=== PATIENT | female | born 1955 | race African-American/Black ===

== ENCOUNTER 2016-11-12 12:33 | Inpatient (IN) | payer MEDICARE, OTHER ==
--- NOTE | ~2016-11-12 | CN ---
Consultation Report [facility] [address] [place]. [address] NAME: MARTINA SCOTT : 51 STATUS : ADM IN PAT#: [id number] AGE: 61 ADM/REG DATE : 11/12/16 MR#: [id number] REPORT SERV DATE: 11/13/16 DICTATED BY: KRISHNA CONTRERAS DATE: 11/13/16 REPORT STATUS : Draft TRANSCRIBED BY: MODL DATE: 11/13/16 DATE OF CONSULTATION: 11/13/2016 CHIEF COMPLAINT: Shortness of breath and lower extremity edema in a patient with known severe COPD as well as severe pulmonary hypertension. HISTORY OF PRESENT ILLNESS: Ms. Martina Scott is a morbidly obese 61-year-old female with a past medical history significant for severe COPD with oxygen dependence at 46 L, severe pulmonary hypertension, obstructive sleep apnea without CPAP compliance, and ongoing tobacco abuse, who presents to [facility]'s Emergency Room with complaints of worsening shortness of breath and lower extremity edema of one to two weeks' duration. It should be noted that Ms. Scott was hospitalized as recently as June when she was seen by our Critical Care team. At the end of this hospitalization, she elected to pursue hospice care. Ms. Scott has been seen by multiple members of our pulmonary team in both the inpatient and outpatient setting. She is on chronic oxygen at 4-5 liters. She is on a home pulmonary regimen of DuoNeb of which she is compliant. Ms. Scott continues to smoke approximately half a pack of cigarettes per day. She has smoked at least one pack a day for the last 30- 40 years. She confirms multiple symptoms of obstructive sleep apnea. She has never had formal outpatient polysomnography as far she knows. She has refused CPAP therapy in the past. She describes her exercise tolerance as being poor, being only able to ambulate around her house a short distance before experiencing some degree of shortness of breath. Again, Ms. Scott was hospitalized in June of this year when she was treated for symptoms related to acute on chronic hypoxemic-hypercapnic respiratory failure as well as severe pulmonary hypertension. She was eventually discharged with hospice care and has largely done well in the 6-month interval. More recently, she began to experience increasing shortness of breath as well as bilateral lower extremity edema and as such presented to [facility]'s Emergency Room. Upon arrival, she was found to be afebrile. She had an oxygen saturation of 88% on 5 L. Initial blood work revealed a white blood cell count of 5400. Her BNP was elevated at 546.3. Her creatinine was 1.22. She did undergo a CT of the abdomen and pelvis for unclear reasons. That being said, she did have some trace ascites as well as a small right pleural effusion noted. The patient received diuretics as well as breathing treatments and IV steroids. Blood gas was obtained, which revealed a pH of 7.32, PaCO2 of 77, a PaO2 of 64, and a bicarb of 38.8. For the aforementioned reasons, she has been referred to the Pulmonary Service for further assessment. Currently, Ms. Scott' main pulmonary complaint is wheezing. She does have some shortness of breath. This is worse on exertion and relieved by rest. She denies any productive cough. She denies any recent pneumonias or upper respiratory infections. That being said, it looks like she has recently been prescribed a course of amoxicillin. She is appropriate, but slightly lethargic. Her son at bedside describes her as being not as "sharp as usual." The patient currently denies any murmurs, angina, or palpitations. She has had some Consultation Report [address] [address] NAME: MARTINA SCOTT : 51 STATUS : ADM IN [facility]#: [id number] AGE: 61 ADM/REG DATE : 11/12/16 MR#: [id number] REPORT SERV DATE: 11/13/16 DICTATED BY: KRISHNA CONTRERAS DATE: 11/13/16 REPORT STATUS : Draft TRANSCRIBED BY: NEVAEH DATE: 11/13/16 worsening lower extremity edema as of late. In regard to constitutional symptoms, she currently denies fever, chills, nausea, vomiting, chest pain, or abdominal pain. PAST MEDICAL HISTORY: 1. Severe COPD. 2. Chronic hypoxemic respiratory failure. 3. Obesity hypoventilation syndrome. 4. Severe pulmonary hypertension as noted on echocardiogram. 5. Obstructive sleep apnea without CPAP therapy. 6. Uncontrolled diabetes mellitus. 7. Morbid obesity. 8. Coronary artery disease. 9. Heart failure with preserved ejection fraction. 10.Dyslipidemia. 11.Chronic kidney disease. PAST SURGICAL HISTORY: 1. Total abdominal hysterectomy. 2. Tonsillectomy and adenectomy. 3. Back surgery. 4. Multiple hernia repairs. 5. Carpal tunnel release x2. FAMILY HISTORY: The patient denies family history of lung disease. SOCIAL HISTORY: The patient has recently been on hospice. She has at least one son, who is currently at bedside. She denies any known exposures to dust, silica, or asbestos. TOBACCO/ALCOHOL: As previously mentioned, the patient has smoked up until the time of presentation. She smoked at least one pack a day for the last 30 or 40 years. She denies any recent alcohol or illicit drug use. MEDICATIONS: 1. DuoNeb. 2. Aspirin 325 mg. 3. Clopidogrel 75 mg. 4. Furosemide 80 mg. 5. Gabapentin 400 mg. 6. Insulin. 7. Metoprolol 25 mg. 8. Potassium chloride 20 mEq. 9. Valsartan 160 mg. Consultation Report [address] [place]. [address] NAME: MARTINA SCOTT : 51 STATUS : ADM IN [facility]#: [id number] AGE: 61 ADM/REG DATE : 11/12/16 MR#: [id number] REPORT SERV DATE: 11/13/16 DICTATED BY: KRISHNA CONTRERAS DATE: 11/13/16 REPORT STATUS : Draft TRANSCRIBED BY: NEVAEH DATE: 11/13/16 ALLERGIES: THE PATIENT HAS KNOWN ALLERGY TO MORPHINE AND HYDRALAZINE. REVIEW OF SYSTEMS: Complete review of systems was performed with pertinent positives and negatives contained within the body of the HPI. PHYSICAL EXAMINATION: VITAL SIGNS: Blood pressure is 144/73, heart rate 85, T-max is 98.6, respiratory rate is 15, SpO2 is 92% on 6 L. GENERAL: Ms. Martina Scott is a morbidly obese 61-year-old female, who is not currently exhibiting any signs of acute distress. SKIN: With appropriate texture and turgor. No rashes, lesions, or ulcers. HEENT: Head, skull is normocephalic and atraumatic. Eyes, sclerae are anicteric. Ears, auricles and tragus are without pain to palpation. Nose, bilateral nasal patency. Throat, the patient is Mallampati class IV. NECK: Supple. Trachea midline. THORAX/LUNGS: Thorax is symmetric and equal with chest rise. Expiratory wheezes appreciated. CARDIOVASCULAR: Regular rate and rhythm. ABDOMEN: Soft. PERIPHERAL VASCULAR: Mild nonpitting edema. MUSCULOSKELETAL: Full AROM and PROM in all joints. NEUROLOGIC: Cranial nerves 2 through 12 are grossly intact. PSYCHIATRIC: The patient is appropriate and oriented. ACCESSORY DATA: Reveals a creatinine of 1.23, BNP is 546.3, hemoglobin A1c is 15.4. Last arterial blood gas reveals pH of 7.29, PaCO2 of 90, PaO2 of 74, and a bicarb of 42.5. She is on settings 14/6, rate at 12, FiO2 of 45%. White blood cell count is 7800, MCV is 100.6. Blood cultures are negative to date. Chest x-ray reveals a right pleural effusion and some vascular congestion. CT of the abdomen and pelvis reveals a right pleural effusion, which seems to be chronic in nature. Echocardiogram performed in 2016 reveals a right ventricular systolic pressure estimated to be 88 mmHg. The patient has severe tricuspid regurg. IMPRESSION: 1. Acute on chronic hypoxemic-hypercapnic respiratory failure. 2. Severe chronic obstructive pulmonary disease with exacerbation. 3. Volume overload in a patient with severe pulmonary hypertension. 4. Obstructive sleep apnea without CPAP compliance. 5. Tobacco dependency-complicated. 6. Poorly controlled diabetes mellitus. PLAN: 1. At this time, we will increase the patient's BiPAP settings and have her wear this intermittently today. She will need to wear this at hour of sleep. We will check an ABG in the morning to make sure that her ventilatory needs are being met. She has met Consultation Report [address] [address] NAME: MARTINA SCOTT : 51 STATUS : ADM IN [facility]#: [id number] AGE: 61 ADM/REG DATE : 11/12/16 MR#: [id number] REPORT SERV DATE: 11/13/16 DICTATED BY: KRISHNA CONTRERAS DATE: 11/13/16 REPORT STATUS : Draft TRANSCRIBED BY: MODYaquelin DATE: 11/13/16 with the palliative care team and is now requesting intubation should she have worsening hypercapnic respiratory failure. That being said, she does not wish to receive a trach should it come to this. She may qualify for BiPAP at discharge if she is willing to be compliant with this therapy. 2. In regard to the patient's exacerbation of her severe COPD, we will change her Levaquin over to an oral equivalent. We will keep her on IV Solu-Medrol and place her on full armamentarium of nebulized medications. In regard to the patient's severe pulmonary hypertension, she is currently on a Lasix drip. I would not recommend pursuing right heart catheterization or the initiation of a PDE5 or an endothelin antagonist at this time. Again, her initial choice for hospice was likely reasonable given the severity of her pulmonary hypertension. 3. In regard to the patient's ongoing tobacco abuse, we have counseled her greater than 10 minutes in the benefits of smoking cessation. The aforementioned impression and plan have been discussed with Dr. Seay, who will follow further recommendations. We thank you for this consult and look forward to participating in the care of Ms. Martina Scott. GBS/MODL Krishna Contreras PA-C / [id number] CC: Jac De Anda MD NO PCP
--- NOTE | ~2016-11-12 | CN ---
Consultation Report [facility] [address] [place]. [address] NAME: MARTINA SCOTT : 51 STATUS : ADM IN PAT#: [id number] AGE: 61 ADM/REG DATE : 11/12/16 MR#: [id number] REPORT SERV DATE: 11/13/16 DICTATED BY: ELIEL MARTINEZ DATE: 11/13/16 REPORT STATUS : Draft TRANSCRIBED BY: MODL DATE: 11/13/16 PALLIATIVE CARE CONSULTATION DATE OF CONSULTATION: 11/13/2016 REASON FOR ADMISSION: Palliative care consultation requested for clarification of goals of care and advanced care planning. ALLERGIES: THE PATIENT ALLERGIES ARE LISTED MORPHINE AND HYDRALAZINE, REACTIONS ARE NOT SPECIFIED. HISTORY OF PRESENT ILLNESS: The patient is seen in her room with her son Paresh who is the primary spokesperson. Martina, a 61-year-old obese female, was on hospice as of the end of June and now returns with increasing shortness of breath in desirous of more aggressive care. Her comment that "all hospice wants to do is have me ", is somewhat at odds with the fact that she is now five and half months down the line from hospice admission and continues to thrive. She has a history of previous obesity hypoventilation syndrome, but was intolerant of CPAP in the past. She says she is willing to try it again. Extensive discussions are documented in the H and P by Dr. Akins indicating of desire for full resuscitative efforts. We note that her pCO2 is now rising and her most recent pH was 7.29, pCO2 90, PO2 74. This is evidently after Diamox. Her hemoglobin A1c is 15.4 and her BMI is 46.1. The patient is seen in her room in her bed. She is slightly upright, minimally short of breath at rest, and intermittently tearful. PAST MEDICAL HISTORY: Includes pulmonary hypertension, severity not specified for some time as far as I can tell, insulin-dependent diabetes mellitus which clearly she has been noncompliant with, COPD on home O2 4 to 5 L, morbid obesity, CKD II, a history of "chronic pain and diastolic heart failure". PAST SURGICAL HISTORY: She has had a previous hysterectomy, back surgeries, and multiple hernia repairs. SOCIAL HISTORY: She continues as a one-half pack per day smoker. No alcohol. No illicit drugs. She lives with family. Her son Paresh garcia is a primary surrogate decision maker. PHYSICAL EXAMINATION: GENERAL: Today shows an awake, alert, somewhat labile, tearful female, who Consultation Report [facility] [id number] [place]. [address] NAME: MARTINA SCOTT : 51 STATUS : ADM IN PAT#: [id number] AGE: 61 ADM/REG DATE : 11/12/16 MR#: [id number] REPORT SERV DATE: 11/13/16 DICTATED BY: ELIEL MARTINEZ DATE: 11/13/16 REPORT STATUS : Draft TRANSCRIBED BY: NEVAEH DATE: 11/13/16 is for the most part fairly appropriate. VITAL SIGNS: Her pulse is 88 and regular, blood pressure 140/70, respiratory rate is 22. She is on 5 L of oxygen. HEENT: The head is normocephalic. The eyes show equal reactive pupils. Slightly muddy sclerae. Conjunctivae are pink. Nasopharynx grossly clear. Dentition incomplete. Trachea is midline. No audible stridor. CHEST: Auscultation of her chest shows that her lungs show decreased breath sounds bilaterally. There are a few crackles in the bases posteriorly. No expiratory wheezes are noted. HEART: Shows a regular rate and rhythm. S1, S2. A soft grade 2 to 3 over 6 systolic murmur at the left sternal border radiating towards the axilla, possibly consistent with mitral valve disease is noted. Pulses are symmetrical. ABDOMEN: Obese with previous surgical repairs. Bowel sounds are present. There is no tenderness. EXTREMITIES: Show 3+ pitting edema to the mid thighs which is pretty much her baseline. There are no obvious open wounds, excoriations, or evidence of cellulitis. The patient is anxious at intervals, but able to express her wishes and desires. A discussion was held, please see below. IMPRESSION, PLAN, AND DISCUSSION: This is a morbidly obese, lady with severe CO2 retention, chronic obstructive pulmonary disease, debility, and diabetes poorly controlled. She has desires at this time receiving "full care." When I described endotracheal intubation, she seemed to be somewhat surprised by the magnitude of the therapy. Nevertheless, she says that she wants to live. I asked her if that included stopping smoking and she looked at me and was very very quiet for a few movements. Looking at the overall situation however her major goal is to be at home and be more comfortable. With that in mind if intubation is needed, I think that taking that as far as the tracheostomy, but not performing a tracheostomy and not looking a long-term ventilator placement would certainly be appropriate given her size, debility, and level of function. Thus, I think that she will be a full code for now. Her son is present, if the conversation understands the fact that a tracheostomy will require her to be placed on a permanent care facility which is not in keeping with her goals or desires. I look forward to the input of my pulmonary colleagues and lab reference to her overall management strategies however, I think that she really is quite limited and is really exhausting her reserve. I think intubation is certainly likely in the next 24 to 48 hours. Thank you for asking us to see the patient. A total of 55 minutes at the bedside. RWG/MODL Consultation Report [address] [address] NAME: MARTINA SCOTT : 51 STATUS : ADM IN PAT#: [id number] AGE: 61 ADM/REG DATE : 11/12/16 MR#: [id number] REPORT SERV DATE: 11/13/16 DICTATED BY: ELIEL MARTINEZ DATE: 11/13/16 REPORT STATUS : Draft TRANSCRIBED BY: NEVAEH DATE: 11/13/16 Eliel Martinez M.D. / [id number] CC: Jac De Anda MD
--- NOTE | ~2016-11-12 | HP ---
History And Physical [place] [id number] [facility] [place]. [address] NAME: MARTINA SCOTT : 51 STATUS : ADM IN [facility]#: [id number] AGE: 61 ADM/REG DATE : 11/12/16 MR#: [id number] REPORT SERV DATE: 11/12/16 DICTATED BY: ROBERTO LAKE DATE: 11/12/16 REPORT STATUS : Draft TRANSCRIBED BY: MODYaquelin DATE: 11/12/16 DATE OF ADMISSION: 11/12/2016 POINT OF ENTRY: [facility] Emergency Department. PRIMARY CARE PHYSICIAN: None at this time. The patient is currently cared for by [facility]. PRIMARY AIR SHOVEL OPERATOR: Poppy Seay M.D. CHIEF COMPLAINT: Shortness of breath and swelling. HISTORY OF PRESENT ILLNESS: Ms. Scott is a 61-year-old female with history of COPD on chronic 4 to 5 L nasal cannula, obesity hypoventilation syndrome, obstructive sleep apnea, severe pulmonary hypertension, as well as chronic hypercarbic and hypoxic respiratory failure, who is noncompliant with CPAP or BiPAP therapy, who presents to emergency room today with reports of worsening shortness of breath and edema. The patient was last admitted to the Hospitalist Service June 2016, for acute COPD exacerbation as well as acute on chronic hypoxic and hypercarbic respiratory failure. The patient again was not tolerant of either CPAP or BiPAP. Attempts at diuresis were largely unsuccessful. Pulmonology and Palliative Care consultations were obtained, and ultimately the patient was discharged to home on hospice. The patient states that she is on both Lasix and Bumex, however, this is yet to be confirmed by pharmacy and despite being on diuretics has noted continued worsening shortness of breath, as well as swelling and edema in her lower extremities as well as her abdomen. She also reports intermittent troubles with fevers, cough, sputum production, abdominal pain, as well as chest pain, but nothing recent other than her shortness of breath and diffuse edema complaints. The patient presents to the emergency room today willing to revoke hospice in order to be cared for. The patient also states that she currently is a full code. Initial evaluation in the emergency department for an ABG showing chronic and fairly well compensated hypercarbic and hypoxic respiratory failure. Chest x-ray concerning for volume overload. BNP elevated at 546.3. Remainder of her labs otherwise unremarkable. She was started on steroids, breathing treatments, as well as 80 mg of IV Lasix and 8 units of IV insulin for sugar of 341. REVIEW OF SYSTEMS: Comprehensive review of system otherwise negative unless listed in history of present illness, although the patient is a very poor historian. PREVIOUS MEDICAL HISTORY: 1. 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 History And Physical [address] [address] NAME: MARTINA SCOTT : 51 STATUS : ADM IN PAT#: [id number] AGE: 61 ADM/REG DATE : 11/12/16 MR#: [id number] REPORT SERV DATE: 11/12/16 DICTATED BY: ROBERTO LAKE DATE: 11/12/16 REPORT STATUS : Draft TRANSCRIBED BY: NEVAEH DATE: 11/12/16 2. Chronic hypercarbic and hypoxic respiratory failure noncompliant with CPAP or BiPAP. 3. Severe pulmonary hypertension. 4. Obesity hypoventilation syndrome with obstructive sleep apnea. 5. Poorly controlled insulin-dependent diabetes mellitus type 2. 6. Morbid obesity. 7. Nonobstructive coronary artery disease. 8. Chronic diastolic congestive heart failure. 9. Hypertension. 10.Hyperlipidemia. 11.Chronic kidney disease stage 2. 12.Chronic pain syndrome. SURGICAL HISTORY: 1. Abdominal hysterectomy. 2. Tonsillectomy and adenoidectomy. 3. Back surgery. 4. Hernia repair surgery x6. 5. Bilateral carpal tunnel. ALLERGIES: TO MORPHINE AND HYDRALAZINE. HOME MEDICATIONS: This is again yet to be confirmed by pharmacy: 1. DuoNeb one nebulization q.4 to q.6 hours. 2. Augmentin 875 mg b.i.d. 3. Aspirin 325 mg daily. 4. Plavix 75 mg daily. 5. Gabapentin 400 mg t.i.d. 6. Levemir 20 units q.h.s. 7. Lopressor 25 mg t.i.d. 8. Potassium chloride 20 mEq daily. 9. Valsartan 160 mg daily. SOCIAL HISTORY: She still smokes half pack per day. Denies any alcohol or illicits. FAMILY MEDICAL HISTORY: Notable for hypertension and coronary artery disease. LABS AND IMAGIN. ABG: PH is 7.35, PCO2 is 75, PO2 62, bicarb is 43, saturating 91% on 5 L by nasal cannula. 2. White count is 5.4, hemoglobin is 13.7, hematocrit is 46.2, platelet count is 141, INR 1.1. 3. Sodium is 144, potassium 4.3, chloride 98, carbon dioxide 45, BUN 14, creatinine 1.22, glucose is 341, calcium is 9.0, magnesium is 2.0. 4. Lipase is 185. 5. Troponin is 0.03. 6. BNP is 546.3. 7. EKG per my review shows normal sinus rhythm with no evidence of any acute ischemia or History And Physical [address] [place]. [address] NAME: MARTINA SCOTT : 51 STATUS : ADM IN [facility]#: [id number] AGE: 61 ADM/REG DATE : 11/12/16 MR#: [id number] REPORT SERV DATE: 11/12/16 DICTATED BY: ROBERTO LAKE DATE: 11/12/16 REPORT STATUS : Draft TRANSCRIBED BY: NEVAEH DATE: 11/12/16 infarction, low voltages diffusely with right axis deviation. 8. Chest x-ray per my review shows cardiomegaly with diffuse intravascular volume overload and pulmonary venous congestion with some very small pleural effusions bilaterally. 9. CT scan of the abdomen and pelvis shows trace ascites with diffuse body wall edema with some concern for possible subcapsular hematoma. Followup recommended with a 3.8 cm left adnexal mass concern for teratoma as well as small right pleural effusion. PHYSICAL EXAMINATION: VITAL SIGNS: Temperature is 99.6 degrees Fahrenheit, pulse is 68, respirations 22, saturating 80% on 5 L by nasal cannula. Blood pressure 141/95, on recheck blood pressure is 139/65, saturating 95% on 9 L nasal cannula high flow. GENERAL: The patient is awake, alert, and in no acute distress. She is a morbidly obese appearing female HEENT: Atraumatic and normocephalic. Moist mucous membranes. Pupils are equal, round, reactive to light and accommodation. Extraocular eye movements intact. NECK: Positive jugular venous distention, but very difficult to measure given body habitus. No carotid bruits. CARDIAC: Regular rate and rhythm with a 2/6 systolic murmur heard best over right lower sternal border. LUNGS: Decreased breath sounds in the bases and prolonged respiratory phase with distant breath sounds throughout, but in no acute distress at this time. ABDOMEN: Obese, soft, diffusely tender to palpation over all quadrants, but no rebound, guarding, or rigidity. Hypoactive bowel sounds throughout. Diffuse body wall edema. LOWER EXTREMITIES: Warm, well perfused with 2 to 3+ lower extremity edema bilaterally. SKIN: Warm and dry. PSYCH: Affect appropriate. NEURO: Alert and oriented x3. Cranial nerves 2 through 12 grossly intact. Speech is normal. Gait not assessed. ASSESSMENT AND PLAN: Ms. Scott is a 61-year-old female, who presents with worsening shortness of breath and volume overload. PROBLEM LIST: 1. Acute COPD exacerbation. 2. Acute on chronic hypoxic and hypercarbic respiratory failure. 3. Acute on chronic diastolic congestive heart failure with cor pulmonale. 4. Insulin-dependent diabetes mellitus type 2 with hyperglycemia. 5. Obstructive sleep apnea and obesity hypoventilation syndrome, non-complaint or non- tolerant of CPAP or BiPAP therapy. 6. Active tobacco abuse. PLAN: 1. Acute COPD exacerbation with acute on chronic hypoxic and hypercarbic respiratory failure. We will treat with frequent bronchodilators of DuoNeb q.4 hours with albuterol q.2 hour p.r.n. as well as Brovana and Pulmicort, in addition to Solu-Medrol and Levaquin. Given the patient's end-stage lung disease and desired to be full code, we will consult Pulmonology for assistance. We will also place the patient on some low- History And Physical [address] [address] NAME: MARTINA SCOTT : 51 STATUS : ADM IN PAT#: [id number] AGE: 61 ADM/REG DATE : 11/12/16 MR#: [id number] REPORT SERV DATE: 11/12/16 DICTATED BY: ROBERTO LAKE DATE: 11/12/16 REPORT STATUS : Draft TRANSCRIBED BY: NEVAEH DATE: 11/12/16 dose oral Diamox for her metabolic alkalosis in an attempt to stimulate her respiratory drive. The patient currently states that she is a full code and would entertain BiPAP as well as intubation. Per discussion with respiratory therapy done in the ER, she is very difficult to BiPAP without significant sedation. Unfortunately, there are no IMCU beds available to me at this time. This time we will admit the patient to telemetry floor. We will recheck an ABG in a few hours and should she not seem to respond to our treatments, the patient may need to go to the ICU for intubation as has happened in the past. 2. Acute on chronic diastolic congestive heart failure with cor pulmonale. We first need to confirm the patient's diuretic doses at home. She has received Lasix 80 mg IV here in the emergency department, placed her on sodium as well as fluid restriction. 3. Insulin-dependent diabetes mellitus type 2 with hyperglycemia. She has received 8 units of IV insulin here in the emergency department. We will check hemoglobin A1c. Continue the patient's home long-acting insulin as well as place her on a level 3 insulin sliding scale. 4. Active tobacco abuse. Need for tobacco cessation, nicotine replacement protocol. 5. DVT prophylaxis. Lovenox subcu. CODE STATUS: The patient this time wishes to be a full code. This was discussed extensively with the patient. At this time, she is willing to entertain both intubation as well as BiPAP therapy. JCB/MODL Roberto Lake MD / [id number] CC: MD Poppy Douglas M.D.
--- NOTE | ~2016-11-12 | DS ---
Discharge Summary [place] [address] [facility] [place]. [address] NAME: MARTINA SCOTT : 51 STATUS : DIS IN PAT#: [id number] AGE: 61 ADM/REG DATE : 11/12/16 MR#: [id number] REPORT SERV DATE: 11/17/16 DICTATED BY: BRYCE LEVI DATE: 11/17/16 REPORT STATUS : Draft TRANSCRIBED BY: MODL DATE: 11/17/16 ADMISSION DATE: 11/12/2016 DISCHARGE DATE: 11/17/2016 PULMONOLOGISTS: Nurse practitioner, John trujillo and Dr. Seay. DIAGNOSIS ON ADMISSION: 1. Acute COPD exacerbation. 2. Acute on chronic hypoxic and hypercarbic respiratory failure. 3. Acute on chronic diastolic CHF with cor pulmonale. 4. Insulin dependent diabetes type 2 with hyperglycemia. 5. Obstructive sleep apnea and obesity-hypoventilation syndrome, noncompliant and nontolerant of CPAP or BiPAP therapy. 6. Active tobacco abuse. DIAGNOSIS ON DISCHARGE: 1. Acute chronic obstructive pulmonary disease exacerbation resolved. 2. Severe chronic obstructive pulmonary disease at baseline with chronic hypoxic and hypercarbic respiratory failure. The patient promised to use BiPAP at home. 3. Chronic hypoxic hypercarbic respiratory failure. The patient to wear BiPAP at home reinforced. 4. Acute diastolic CHF resolved. 5. Chronic cor pulmonale with chronic CHF diastolic dysfunction compensated. 6. Insulin diabetes mellitus very uncontrolled on admission with hemoglobin A1c 15, currently controlled. 7. Obstructive sleep apnea. The patient was encouraged to use BiPAP at home. 8. Tobacco abuse. The patient needs to stop smoking. CONSULTANTS ON THE CASE: John Trujillo, Pulmonary nurse practitioner and Dr. Poppy Seay. For the details of admission, see history of present illness dictated by my colleague, Dr. Akins, on 11/12/2016. The patient was seen by Dr. De Anda until 11/14/2016, when I started to see this patient. The patient has improved on nighttime BiPAP. She was coming back to her baseline. She also was on Lasix drip on admission which was discontinued and the patient was switched to her home dose of Lasix. She was doing well and her creatinine was stable on the Lasix as well as the patient had severely uncontrolled diabetes with a hemoglobin A1c 15.4. Initially she was placed on intravenous steroids and for this reason, blood sugar was highly uncontrolled. She was also started on insulin drip which subsequently was discontinued. The patient's blood sugar was still running elevated and we restarted her insulin drip and adjusted her home Levemir. She had to stay one more day for this because her blood sugar needed insulin drip, the patient was recommended to use Levemir twice a day 25 units should be at bedtime and 10 units of Levemir in the morning, so, she needs to use 25 units of Levemir at bedtime and 10 units in the morning. She also was recommended to use NovoLog 5 units before meals and unit educator explained to her about checking blood sugar before meals and giving NovoLog injections as well as she explained to her about hypoglycemia management in case if blood sugar will be low. She understood it very well. Discharge Summary [address] [place]. [address] NAME: MARTINA SCOTT : 51 STATUS : DIS IN PAT#: [id number] AGE: 61 ADM/REG DATE : 11/12/16 MR#: [id number] REPORT SERV DATE: 11/17/16 DICTATED BY: BRYCE LEVI DATE: 11/17/16 REPORT STATUS : Draft TRANSCRIBED BY: NEVAEH DATE: 11/17/16 Her sugar today was very well controlled. It was this morning 150, 129, 136. As well as her COPD was stable. Her respiratory status improved. She was awake, alert, and oriented, and the parameters for BiPAP at home was written by John Trujillo as well as her oxygenation status was good. She was on 4 to 5 liters by nasal cannula which is her baseline. Her creatinine stayed stable on current Lasix dose, so overall the patient was doing very well and she was ready for discharge. DISCHARGE MEDICATIONS: 1. Aspirin 325 mg a day. 2. Plavix 75 mg a day. 3. Lasix 80 mg in the morning and 40 mg in the evening as she takes at home. 4. Neurontin 400 p.o. three times a day. 5. Increased nighttime Levemir to 25 units at bedtime and started 10 units in the morning of Levemir. 6. Metoprolol 25 mg p.o. three times a day. 7. NovoLog 5 units before meals. 8. Potassium chloride 20 mEq p.o. daily. 9. Nicotine transdermal patch 21 mg daily. 10.Valsartan 160 mg a day. 11.The patient completed already her prednisone. 12.Albuterol, ipratropium, DuoNeb breathing treatment q.4 hours. The patient was doing very well. Her chest x-ray was good, and her respiratory status was good. The patient was discharged in a stable condition to hospice. I spent 50 minutes on this discharge. DICTATED BY: Mary Gutiérrez/NEVAEH Bryce Levi M.D. / [id number] CC: Mary Gutiérrez M.D. Garrick B Spoon, PA-C
[2016-11-12 12:15] LABS: BASOPHILS 0.2 %; BASOPHILS ABSOLUTE 0.01 10/3/uL (0.0-0.16); EOSINOPHILS 1.3 %; EOSINOPHILS ABSOLUTE 0.07 10/3/uL (0.0-0.53); HEMATOCRIT 46.2 % (36.0-48.0); HEMOGLOBIN 13.7 g/dL (12.0-16.0); IMMATURE GRANULOCYTES 0.2 %; IMMATURE GRANULOCYTES ABSOLUTE 0.01 10/3/uL (0.0-0.11); LYMPHOCYTES 23.4 %; LYMPHOCYTES ABSOLUTE 1.27 10/3/uL (0.67-4.30); MEAN CORPUS HGB CONC 29.7 g/dL (32.0-36.0); MEAN CORPUSCULAR HEMOGLOB 29.7 pg (26.0-34.0); MEAN CORPUSCULAR VOLUME 100.2 fL (80-100); MEAN PLATELET VOLUME 10.8 fL (9.2-13.0); MONOCYTES 5.9 %; MONOCYTES ABSOLUTE 0.32 10/3/uL (0.21-1.20); NEUTROPHILS ABSOLUTE 3.74 10/3/uL (2.02-8.40); PLATELET COUNT 141 10/3/uL (150-400); RBC DISTRIBUTION WIDTH 14.3 % (12.0-16.0); RED CELL COUNT 4.61 10/6/uL (4.0-5.6); WHITE BLOOD CELLS 5.4 10/3/uL (4.5-10.5)
[2016-11-12 12:16] LABS: MANUAL DIFF NO %
[2016-11-12 12:30] LABS: CHEST PAIN PROFILE TAT 0 Hrs 19 Mins; CHLORIDE, SERUM 98 MMOL/L (96-112); CREATININE 1.22 MG/DL (0.55-1.02); GFR AFRICAN AMERICAN 55 ML/MIN (>=60); GFR NON AFRICAN AMERICAN 47 ML/MIN (>=60); POTASSIUM, SERUM 4.3 MMOL/L (3.5-5.3); SODIUM, SERUM 144 MMOL/L (135-148); TROPONIN I 0.03 NG/ML (<0.05)
[2016-11-12 12:31] LABS: INTERNATIONAL NORMAL RATI 1.1 UNITS (-); PARTIAL THROMBO TIME 28.1 SEC (22.5-37.2); PROTIME (NOT ORD) 14.3 SEC (12.0-14.5)
[2016-11-12 12:33] LABS: BUN (BLOOD UREA NITROGEN) 14 MG/DL (6-23); GLUCOSE, SERUM 341 MG/DL (60-99)
[~2016-11-12 12:33] MED LIST: ACCUNE1 INH; ADVAIR250 INH; ALBUTEROL INH; ALBUTEROL5 INH; ALKA SELTZER COLD OR; ALKA SELTZER OR; AMARYL4 PO; APRES50 PO; ASAB PO; AUG500 PO; AVELOX400 PO; B12250T PO; BACLOFEN20 MG PO; BAYER PO; BENICAR HCT1 TAB PO; BETA-VAL0.1 % TOP; BETAMETH VAL0.1 % TOP; BUM1 PO; BUM2 PO; BUM5 PO; CARDCD120 PO; CARTIA XT120 MG/24 PO; CENTRUM TAB1 TAB PO; CHLORZOXAZON500 MG PO; CLINDA150 PO; COREG6 PO; DIAM250B PO; DIOV160 PO; DIOV80 PO; DIOVAN HC1 PO; DIOVAN HCT160 MG/25 PO; DOLOPHINE5 MG PO; DUONEB INH; FLEX PO; FLEXERIL PO; FLONASE NAS; GLUCOPHAGE1000 MG PO; GOODY'S EX-STR1 EAC1 PO; HALF81 PO; HUMALOG SC; HUMALOGMIX SC; HUMALOGPEN SC; HUMI PO; HUMULIN SC; INSNOV7030 SC; INSNOVR SC; JANUVIA100 MG PO; KDUR20 PO; KLOR-CON M2020 MEQ PO; KLOR-CON20 MEQ PO; L40 PO; LEVAQUIN750 MG PO; LEVEMIR SC; LEXAPRO20 PO; LIOR10 PO; LOP25 PO; LORTAB10 PO; Lopressor; MAGNEBIND PO; MAGOX4 PO; METHODONE; MOBIC7.5 PO; MONODOX100 MG PO; MULTIPLE VIT PO; NEUR100 PO; NEUR300 PO; NEUR400 PO; NEUR600 PO; NICODERM C14 MG/24 H TOP; NITROMIST400 MCG SL; NITROSPRAY SL; NITROSTAT0.4 MG SL; NORCO1 TAB PO; NORV5 PO; NOVOLOG SC; NOVOLOGMIX; ORPHENADRINE PO; OXYCODONE; Oxycodone; P10 PO; P20 PO; PAX20 PO; PERCOCET1 TA4 PO; PR25 PO; PROAIR HFA INH; PROVENTSOL INH; PROVHFA INH; SOMATAB PO; SPIRIVA INH; SPIRO50 PO; SYMBICORT 160/41 INH INH; T PO; TRAZ50 PO; TRIAMCINOLONE C80 GM T; VIB100 PO; VITAMIN C OTC PO; VYTORIN 10/20 T1 TAB PO; Z5 PO; ZAROX2.5B PO; ZOCOR40 PO; [UNRECOGNIZED DRUG - OTHER] OR
[2016-11-12 12:43] LABS: CO2 (CARBON DIOXIDE) 45 MMOL/L (24-34)
[2016-11-12] MEDS ORDERED: ASABAYER PO (13:21)
[2016-11-12] MEDS ORDERED: LEVEMIR SC (13:22)
[2016-11-12] MEDS ORDERED: DUONEB INH (13:22)
[2016-11-12] MEDS ORDERED: LOP25 PO (13:22)
[2016-11-12] MEDS ORDERED: KLOR-CON M2020 MEQ PO (13:23)
[2016-11-12] MEDS ORDERED: PLAVIX PO (13:23)
[2016-11-12] MEDS ORDERED: AUG875 PO (13:23)
[2016-11-12] MEDS ORDERED: NEUR400 PO (13:23)
[2016-11-12] MEDS ORDERED: DIOV160 PO (13:23)
[2016-11-12] MEDS ORDERED: L80 PO (14:52)
[2016-11-12 15:15] LABS: ALLENS TEST Pos; BE (BASE EXCESS) 9.2 MEQ/L (0 +/- 2.5); CARBOXYHEMOGLOBIN 3.9 % (0-3); HCO3 (ACTUAL BICARBONATE) 38.8 MEQ/L (23-27); HEMOBLOGIN CONTENT 15.3 G/DL (12-16); INSTRUMENT SERIAL # 8087; METHEMOGLOBIN 0.2 % (0-3); O2 CONTENT 18.9 VOL% (18-24); OPERATOR ID 14335; PCO2 (CO2 TENSION) 77 MMHG (35-45); PO2 (O2 TENSION) 64 MMHG (79-93); SAMPLE Arterial; pH 7.32 (7.37-7.43)
[2016-11-12 18:57] LABS: FREE T4 1.02 NG/DL (0.76-1.46)
[2016-11-12 19:00] LABS: ULTRASENSITIVE TSH 0.439 MCIU/ML (0.358-3.740)
[2016-11-12 23:20] LABS: BE (BASE EXCESS) 9.3 MEQ/L (0 +/- 2.5); CARBOXYHEMOGLOBIN 2.5 % (0-3); DEVICE NC; HCO3 (ACTUAL BICARBONATE) 39.6 MEQ/L (23-27); HEMOBLOGIN CONTENT 15.4 G/DL (12-16); INSTRUMENT SERIAL # 11843; METHEMOGLOBIN 0.3 % (0-3); O2 CONTENT 19.7 VOL% (18-24); OPERATOR ID 17370; PCO2 (CO2 TENSION) 82 MMHG (35-45); PO2 (O2 TENSION) 73 MMHG (79-93); SAMPLE Arterial
[2016-11-12 23:21] LABS: ALLENS TEST Pos
[2016-11-13 05:14] LABS: ALLENS TEST Pos; BE (BASE EXCESS) 11.7 MEQ/L (0 +/- 2.5); BIPAP 14/6 cm.H2O; CARBOXYHEMOGLOBIN 2.9 % (0-3); HCO3 (ACTUAL BICARBONATE) 42.5 MEQ/L (23-27); HEMOBLOGIN CONTENT 14.5 G/DL (12-16); INSTRUMENT SERIAL # 8083; METHEMOGLOBIN 0.2 % (0-3); O2 CONTENT 18.6 VOL% (18-24); PCO2 (CO2 TENSION) 90 MMHG (35-45); PO2 (O2 TENSION) 74 MMHG (79-93); SAMPLE Arterial; pH 7.29 (7.37-7.43)
[2016-11-13 06:19] LABS: ASCORBIC ACID (UR NOT ORDER) NEG (NEG); BILIRUBIN, URINE NEGATIVE (NEG); KETONE, URINE NEGATIVE (NEG); LEUKOCYTE ESTERASE(NOT OR NEG (NEG); WBC (NOT ORDERED) (RFLEX) 1 (0-5)
[2016-11-13 08:19] LABS: BASOPHILS 0 %; EOSINOPHILS 0 %; HEMATOCRIT 47.6 % (36.0-48.0); HEMOGLOBIN 14.3 g/dL (12.0-16.0); IMMATURE GRANULOCYTES 0.3 %; IMMATURE GRANULOCYTES ABSOLUTE 0.02 10/3/uL (0.0-0.11); LYMPHOCYTES 9.9 %; LYMPHOCYTES ABSOLUTE 0.77 10/3/uL (0.67-4.30); MEAN CORPUSCULAR HEMOGLOB 30.2 pg (26.0-34.0); MEAN CORPUSCULAR VOLUME 100.6 fL (80-100); MEAN PLATELET VOLUME 10.9 fL (9.2-13.0); MONOCYTES 2.6 %; NEUTROPHILS 87.2 %; NEUTROPHILS ABSOLUTE 6.78 10/3/uL (2.02-8.40); PLATELET COUNT 147 10/3/uL (150-400); RBC DISTRIBUTION WIDTH 13.8 % (12.0-16.0); RED CELL COUNT 4.73 10/6/uL (4.0-5.6)
[2016-11-13 08:20] LABS: MANUAL DIFF NO %; WHITE BLOOD CELLS 7.8 10/3/uL (4.5-10.5)
[2016-11-13 08:29] LABS: CALCIUM, SERUM 8.5 MG/DL (8.5-10.4); CHLORIDE, SERUM 96 MMOL/L (96-112); CREATININE 1.23 MG/DL (0.55-1.02); GFR AFRICAN AMERICAN 54 ML/MIN (>=60); GFR NON AFRICAN AMERICAN 47 ML/MIN (>=60); POTASSIUM, SERUM 3.7 MMOL/L (3.5-5.3); SODIUM, SERUM 138 MMOL/L (135-148)
[2016-11-13 08:30] LABS: BUN (BLOOD UREA NITROGEN) 18 MG/DL (6-23); CO2 (CARBON DIOXIDE) 37 MMOL/L (24-34); GLUCOSE, SERUM 314 MG/DL (60-99)
[2016-11-13 14:30] LABS: ALLENS TEST Pos; BE (BASE EXCESS) 13.1 MEQ/L (0 +/- 2.5); CARBOXYHEMOGLOBIN 4.4 % (0-3); HCO3 (ACTUAL BICARBONATE) 42.6 MEQ/L (23-27); HEMOBLOGIN CONTENT 14.4 G/DL (12-16); INSTRUMENT SERIAL # 8087; METHEMOGLOBIN 0.2 % (0-3); O2 CONTENT 17.6 VOL% (18-24); OPERATOR ID 14335; PCO2 (CO2 TENSION) 79 MMHG (35-45); PO2 (O2 TENSION) 62 MMHG (79-93); SAMPLE Arterial; pH 7.35 (7.37-7.43)
[2016-11-14 03:52] LABS: ALLENS TEST Pos; BE (BASE EXCESS) 8.4 MEQ/L (0 +/- 2.5); BIPAP 18/6 cm.H2O; CARBOXYHEMOGLOBIN 1.4 % (0-3); HCO3 (ACTUAL BICARBONATE) 37.4 MEQ/L (23-27); HEMOBLOGIN CONTENT 14.3 G/DL (12-16); INSTRUMENT SERIAL # 8083; METHEMOGLOBIN 0.2 % (0-3); O2 CONTENT 19.7 VOL% (18-24); OPERATOR ID 30014; PCO2 (CO2 TENSION) 73 MMHG (35-45); PO2 (O2 TENSION) 141 MMHG (79-93); SAMPLE Arterial; pH 7.33 (7.37-7.43)
[2016-11-14 06:17] LABS: BASOPHILS 0 %; EOSINOPHILS 0 %; HEMATOCRIT 48.3 % (36.0-48.0); HEMOGLOBIN 14.5 g/dL (12.0-16.0); IMMATURE GRANULOCYTES 0.4 %; IMMATURE GRANULOCYTES ABSOLUTE 0.04 10/3/uL (0.0-0.11); LYMPHOCYTES 7.7 %; LYMPHOCYTES ABSOLUTE 0.79 10/3/uL (0.67-4.30); MANUAL DIFF NO %; MEAN PLATELET VOLUME 11.6 fL (9.2-13.0); MONOCYTES 3.7 %; MONOCYTES ABSOLUTE 0.38 10/3/uL (0.21-1.20); NEUTROPHILS 88.2 %; NEUTROPHILS ABSOLUTE 9.09 10/3/uL (2.02-8.40); PLATELET COUNT 117 10/3/uL (150-400); RBC DISTRIBUTION WIDTH 13.9 % (12.0-16.0); RED CELL COUNT 4.83 10/6/uL (4.0-5.6); WHITE BLOOD CELLS 10.3 10/3/uL (4.5-10.5)
[2016-11-14 06:31] LABS: CALCIUM, SERUM 9.2 MG/DL (8.5-10.4); CHLORIDE, SERUM 101 MMOL/L (96-112); CO2 (CARBON DIOXIDE) 35 MMOL/L (24-34); CREATININE 1.22 MG/DL (0.55-1.02); GFR AFRICAN AMERICAN 55 ML/MIN (>=60); GFR NON AFRICAN AMERICAN 47 ML/MIN (>=60); POTASSIUM, SERUM 4.4 MMOL/L (3.5-5.3); SODIUM, SERUM 143 MMOL/L (135-148)
[2016-11-14 06:35] LABS: BUN (BLOOD UREA NITROGEN) 23 MG/DL (6-23); GLUCOSE, SERUM 143 MG/DL (60-99); PHOSPHORUS, SERUM 2.7 MG/DL (2.5-4.5)
[2016-11-15 02:02] LABS: BASOPHILS 0 %; EOSINOPHILS 0.1 %; EOSINOPHILS ABSOLUTE 0.01 10/3/uL (0.0-0.53); HEMOGLOBIN 13.5 g/dL (12.0-16.0); IMMATURE GRANULOCYTES 0.3 %; IMMATURE GRANULOCYTES ABSOLUTE 0.03 10/3/uL (0.0-0.11); LYMPHOCYTES 16.5 %; LYMPHOCYTES ABSOLUTE 1.49 10/3/uL (0.67-4.30); MEAN CORPUSCULAR HEMOGLOB 30.5 pg (26.0-34.0); MEAN CORPUSCULAR VOLUME 101.8 fL (80-100); MONOCYTES 7.1 %; MONOCYTES ABSOLUTE 0.64 10/3/uL (0.21-1.20); NEUTROPHILS ABSOLUTE 6.88 10/3/uL (2.02-8.40); PLATELET COUNT 132 10/3/uL (150-400); RED CELL COUNT 4.42 10/6/uL (4.0-5.6); WHITE BLOOD CELLS 9.1 10/3/uL (4.5-10.5)
[2016-11-15 02:03] LABS: MANUAL DIFF NO %
[2016-11-15 02:18] LABS: BUN (BLOOD UREA NITROGEN) 26 MG/DL (6-23); CHLORIDE, SERUM 96 MMOL/L (96-112); CREATININE 1.35 MG/DL (0.55-1.02); GFR AFRICAN AMERICAN 48 ML/MIN (>=60); GFR NON AFRICAN AMERICAN 42 ML/MIN (>=60); POTASSIUM, SERUM 4.1 MMOL/L (3.5-5.3); SODIUM, SERUM 141 MMOL/L (135-148); TROPONIN I 0.02 NG/ML (<0.05)
[2016-11-15 02:19] LABS: CK-MB 2.1 NG/ML; CO2 (CARBON DIOXIDE) 40 MMOL/L (24-34); CPK 66 U/L (0-200); GLUCOSE, SERUM 251 MG/DL (60-99)
[2016-11-16 06:58] LABS: CHLORIDE, SERUM 98 MMOL/L (96-112); CREATININE 1.41 MG/DL (0.55-1.02); GFR AFRICAN AMERICAN 46 ML/MIN (>=60); GFR NON AFRICAN AMERICAN 40 ML/MIN (>=60); GLUCOSE, SERUM 267 MG/DL (60-99); POTASSIUM, SERUM 4.4 MMOL/L (3.5-5.3); SODIUM, SERUM 140 MMOL/L (135-148)
[2016-11-16 06:59] LABS: BUN (BLOOD UREA NITROGEN) 30 MG/DL (6-23); CO2 (CARBON DIOXIDE) 41 MMOL/L (24-34)
[2016-11-17 09:49] LABS: BUN (BLOOD UREA NITROGEN) 32 MG/DL (6-23); CALCIUM, SERUM 9.5 MG/DL (8.5-10.4); CHLORIDE, SERUM 97 MMOL/L (96-112); CREATININE 1.38 MG/DL (0.55-1.02); GFR AFRICAN AMERICAN 47 ML/MIN (>=60); GFR NON AFRICAN AMERICAN 41 ML/MIN (>=60); POTASSIUM, SERUM 4.7 MMOL/L (3.5-5.3); SODIUM, SERUM 141 MMOL/L (135-148)
[2016-11-17 09:55] LABS: CO2 (CARBON DIOXIDE) 44 MMOL/L (24-34); GLUCOSE, SERUM 136 MG/DL (60-99)
[2016-11-17] MEDS ORDERED: L40 PO (10:47)
[2016-11-17] MEDS ORDERED: LEVEMIR SC (10:50)
[2016-11-17] MEDS ORDERED: NOVOPEN SC (10:51)
[2016-11-17] MEDS ORDERED: HABIT21 TOP (10:56)
[2017-02-12] MEDS ORDERED: BUM1 PO (18:53)
[2017-02-12] MEDS ORDERED: ATV1 PO (18:53)
[2017-02-12] MEDS ORDERED: LOP25 PO (18:54)
[2017-02-12] MEDS ORDERED: NEUR400 PO (18:54)
[2017-02-12] MEDS ORDERED: CELEXA10 PO (18:55)
[2017-02-12] MEDS ORDERED: PROAIR HFA INH (18:56)
[2017-02-12] MEDS ORDERED: L40 PO ×2 (18:56)
[2017-02-12] MEDS ORDERED: LEVEMIR SC ×2 (18:57→18:58)
[2017-02-12] MEDS ORDERED: DIOV160 PO (18:57)
[2017-02-12] MEDS ORDERED: PLAVIX PO (18:59)
[2017-02-12] MEDS ORDERED: KLOR-CON M2020 MEQ PO (19:00)
[2017-02-12] MEDS ORDERED: SYMBICORT 160/41 INH INH (19:00)
[2017-02-12] MEDS ORDERED: NORCO1 TAB PO (19:01)
[2017-02-12] MEDS ORDERED: NOVOLOG SC (19:02)
[2017-02-12] MEDS ORDERED: ASAEC PO (19:03)
[2017-02-12] MEDS ORDERED: DUONEB INH (19:03)
[2017-02-12] MEDS ORDERED: DSS PO (19:04)
[2017-02-12] MEDS ORDERED: ALBUTEROL0.083 % INH (19:07)
[2017-02-12] MEDS ORDERED: ATROVENTUD INH (19:08)
== END 2016-11-17 11:59 | disposition hospice, home (50) | DRG 291 ==
LOC: ER 12:33 → 2SO 15:14
PROVIDERS: Hospitalist; Internal Medicine; Nurse Practitioner Family; Physician Assistant Medical; Student in an Organized Health Care Education/Training Program
PROC: 5A09457 Assistance with Respiratory Ventilation, 24-96 Consecutive Hours, Continuous Positive Airway Pressure (ICD-10-PCS; principal; 2016-11-12)
DX: I50.33 Acute on chronic diastolic (congestive) heart failure (principal); J96.21 Acute and chronic respiratory failure with hypoxia; I27.2 Other secondary pulmonary hypertension; E66.2 Morbid (severe) obesity with alveolar hypoventilation; E11.65 Type 2 diabetes mellitus with hyperglycemia; Z68.42 Body mass index [BMI] 45.0-49.9, adult; J96.22 Acute and chronic respiratory failure with hypercapnia; J44.1 Chronic obstructive pulmonary disease with (acute) exacerbation; I13.0 Hypertensive heart and chronic kidney disease with heart failure and stage 1 through stage 4 chronic kidney disease, or unspecified chronic kidney disease; Z51.5 Encounter for palliative care; G47.33 Obstructive sleep apnea (adult) (pediatric); N18.2 Chronic kidney disease, stage 2 (mild); F17.210 Nicotine dependence, cigarettes, uncomplicated; D28.7 Benign neoplasm of other specified female genital organs; G89.4 Chronic pain syndrome; I36.1 Nonrheumatic tricuspid (valve) insufficiency; Z98.890 Other specified postprocedural states; Z88.5 Allergy status to narcotic agent; Z91.19 Patient's noncompliance with other medical treatment and regimen; Z82.49 Family history of ischemic heart disease and other diseases of the circulatory system; Z88.8 Allergy status to other drugs, medicaments and biological substances
CPT/HCPCS: 36600; 71010; 74176; 74177; 80048; 81001; 82550; 82553; 82607; 82746; 82805; 82947; 82962; 83036; 83605; 83690; 83735; 83880; 84100; 84439; 84443; 84484; 85025; 85610; 85730; 87040; 93005; 94640; 94660; 94667; 96374; 99285; A9270-GY; J1170; J1940; J1956; J2405; J2920; J2930; Q9967